=== PATIENT | male | born 1975 | race Caucasian/White ===

== ENCOUNTER → 2023-06-15 | Outpatient (CLI) | payer OTHER, BC ==
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
== END | disposition home or self-care (01) ==
LOC: RADMRIMAIN 06:30
PROVIDERS: ATTEND Family Medicine
DX: M51.16 Intervertebral disc disorders with radiculopathy, lumbar region (principal); M47.27 Other spondylosis with radiculopathy, lumbosacral region
CPT/HCPCS: 72148

== ENCOUNTER → 2023-06-15 | Outpatient (CLI) | payer BC ==
[2023-06-15 16:44] LABS: ALT 35 U/L (10-49); AST 16 U/L (14-35); Albumin/Globulin Ratio 1.72 Ratio (1.60-3.17); Alkaline Phosphatase 62 U/L (41-126); BUN/Creat Ratio 12.89 Ratio (12.00-20.00); Blood Urea Nitrogen 11.6 mg/dL (9.0-27.0); Calcium 10.5 mg/dL (8.7-10.3); Carbon Dioxide 26.5 mmol/L (21.6-31.8); Chloride 102 mmol/L (96-109); Chol/HDL Ratio 5.53 Ratio; Globulin 2.9 d/dL (1.6-3.3); Glucose 89 mg/dL (70-110); LDL Cholesterol,Calculated 144.5 mg/dL (0.0-131.0); Potassium 5.5 mmol/L (3.5-5.5); Sodium 141 mmol/L (135-145); Total Bilirubin 0.4 mg/dL (0.3-1.2); Total Protein 7.9 d/dL (6.2-8.2)
[2023-06-15 16:55] LABS: Basophils % (A) 0.7 %; Eosinophils # (A) 0.18 X 10*3/uL (0.04-0.35); Eosinophils % (A) 1.3 %; HCT 51.2 % (39.6-50.0); HGB 16.4 d/dL (13.0-17.0); Lymphocytes # (A) 4.04 X 10*3/uL (0.90-5.00); Lymphocytes % (A) 28.8 %; MCH 28.7 pg (27.0-32.0); MCV 89.7 FL (80.0-97.0); Monocytes # (A) 1.18 X 10*3/uL (0.20-1.00); Monocytes % (A) 8.4 %; NRBC Per 100 WBC 0 X 10*3/uL (0.00-0.01); Neutrophils # (A) 8.45 X 10*3/uL (1.80-7.70); Neutrophils % (A) 60.4 %; Platelet Count 364 X 10*3/uL (140-440); RBC 5.71 X 10*6/uL (4.40-5.60); RDW 12.9 % (11.5-14.5); WBC 14.01 X 10*3/uL (4.50-10.00)
== END | disposition home or self-care (01) ==
LOC: LABWHC1 08:18
PROVIDERS: ATTEND Family Medicine
DX: Z13.220 Encounter for screening for lipoid disorders (principal); Z13.228 Encounter for screening for other metabolic disorders; R53.83 Other fatigue
CPT/HCPCS: 36415; 80053; 80061; 82306; 84443; 85025

== ENCOUNTER → 2024-03-21 | Outpatient (CLI) | payer BC ==
[2024-03-21 15:15] VITALS: BP 115/72; PULSE 84; RESP 18; TEMP 98.2
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
== END ==
LOC: 3 N SLEEP 14:44
PROVIDERS: ATTEND Internal Medicine
DX: G47.33 Obstructive sleep apnea (adult) (pediatric) (principal); Z98.890 Other specified postprocedural states; Z87.828 Personal history of other (healed) physical injury and trauma; Z87.891 Personal history of nicotine dependence
CPT/HCPCS: 99211